=== PATIENT | male | born 1990 | race Caucasian/White ===

== ENCOUNTER 2023-07-27 15:48 | Emergency (ER) | payer OTHER ==
[2023-07-27] MEDS: Proparacaine 0.5% Ophth Soln 15 ML Bottle EYELF ONE (17:23)
[2023-07-27] MEDS: Acetaminophen 325 MG Tab PO ONE (17:35)
== END 2023-07-27 18:03 | disposition home or self-care (01) ==
LOC: JP.ED 15:48
DX: T15.02XA Foreign body in cornea, left eye, initial encounter (principal); Z87.891 Personal history of nicotine dependence; X58.XXXA Exposure to other specified factors, initial encounter
CPT/HCPCS: 99283; A9270

== ENCOUNTER 2023-07-27 22:45 | Emergency (ER) | payer OTHER ==
[2023-07-27] MEDS ORDERED: Proparacaine 0.5% Ophth Soln 15 ML Bottle EYELF ONE (22:56)
[2023-07-27] MEDS: Tetracaine HCl/PF 0.5% 4 ML Bottle EYELF STA (23:02)
== END 2023-07-27 23:30 | disposition home or self-care (01) ==
LOC: JP.ED 22:45
DX: S05.02XA Injury of conjunctiva and corneal abrasion without foreign body, left eye, initial encounter (principal); X58.XXXA Exposure to other specified factors, initial encounter
CPT/HCPCS: 99283

== ENCOUNTER 2024-02-15 05:20 | Emergency (ER) | payer SELFPAY ==
[2024-02-15] MEDS: Ketorolac 30 MG/ML SDV IM ONE (06:00)
[2024-02-15] MEDS: Ketorolac 10 MG Tab PO ONE (06:03)
[2024-02-15] MEDS: Tamsulosin 0.4 MG Cap.ER PO ONE (06:03)
[2024-02-15 06:26] LABS: APPEARANCE,URINE CLEAR (CLEAR); BILIRUBIN,URINE NEGATIVE (NEGATIVE); COLOR,URINE YELLOW (YELLOW); GLUCOSE,URINE NEGATIVE (NEGATIVE); KETONES,URINE NEGATIVE (NEGATIVE); LEUKOCYTE ESTERASE,URINE NEGATIVE (NEGATIVE); NITRITE,URINE NEGATIVE (NEGATIVE); OCCULT BLOOD,URINE NEGATIVE (NEGATIVE); PH,URINE 5.5 (5.0-8.0); PROTEIN,URINE NEGATIVE (NEGATIVE); UROBILINOGEN,URINE 0.2 EU/dL (0.2-1.0)
[2024-02-15 06:32] LABS: RBC,URINE 0-5 (0-5); WBC,URINE 0-5 (0-5)
[2024-02-15 06:33] LABS: BACTERIA,URINE NOT SEEN; MUCUS,URINE MANY
[2024-02-15 06:34] LABS: AMORPHOUS SEDIMENT,URINE NOT SEEN; EPITHELIAL CELLS,URINE RARE
== END 2024-02-15 07:03 | disposition home or self-care (01) ==
LOC: JP.ED 05:20
DX: N20.0 Calculus of kidney (principal); Z90.49 Acquired absence of other specified parts of digestive tract
CPT/HCPCS: 74176; 81001; 99284; A9270

== ENCOUNTER 2024-02-16 10:04 | Emergency (ER) | payer SELFPAY | END 2024-02-16 10:45 | disposition home or self-care (01) | LOC: JP.ED 10:04 | DX: N23 Unspecified renal colic (principal); Z90.49 Acquired absence of other specified parts of digestive tract | CPT/HCPCS: 99283 ==

== ENCOUNTER 2024-07-20 08:38 | Emergency (ER) | payer OTHER | END 2024-07-20 09:33 | disposition home or self-care (01) | LOC: JP.ED 08:38 | DX: S29.012A Strain of muscle and tendon of back wall of thorax, initial encounter (principal); S16.1XXA Strain of muscle, fascia and tendon at neck level, initial encounter; V49.49XA Driver injured in collision with other motor vehicles in traffic accident, initial encounter; Y93.89 Activity, other specified | CPT/HCPCS: 99283 ==

== ENCOUNTER 2024-07-30 04:05 | Emergency (ER) | payer SELFPAY | END 2024-07-30 04:38 | disposition home or self-care (01) | LOC: JP.ED 04:05 | DX: F41.9 Anxiety disorder, unspecified (principal); F17.210 Nicotine dependence, cigarettes, uncomplicated; Z76.0 Encounter for issue of repeat prescription; Z90.49 Acquired absence of other specified parts of digestive tract | CPT/HCPCS: 99283 ==